=== PATIENT | male | born 1950 | race Caucasian/White ===

== ENCOUNTER 2017-08-26 10:27 | Inpatient (IN) | payer OTHER, MEDICARE ==
[2017-08-26] VITALS (10 sets, daily range): BP systolic 130–187; BP diastolic 70–86; PULSE 56–82; RESP 14–20; TEMP 96.4–98.3; O2SAT 95–98
[~2017-08-26] VITALS: Ht 180.3 cm; Wt 76.6 kg
[2017-08-26] MEDS ORDERED: SPIRCAP INH (10:38)
[2017-08-26] MEDS ORDERED: ALBUAER3 INH (10:38)
--- NOTE | 2017-08-26 10:48 | PD ---
HPI Chief Complaint: Hypertension Time Seen by Provider: 10:38 Travel History International Travel<30 days: No Contact w/Intl Traveler<30days: No Traveled to known affect area: No History of Present Illness HPI This 67-year-old male says that he lost vision in his right eye for about 3 or 4 minutes last night. He's had a mild headache. He has had some visual disturbance in the past. Occasional flashes. Been checking his blood pressure and monitoring and he has occasional elevated readings but he is on no medication. He stopped smoking a year ago and is on 2 inhalers. He did not have any numbness or tingling of his arms or legs he has not been in the hospital for anything recently. [facility] Social History Tobacco Use: No Allergies-Medications (Allergen,Severity, Reaction): Coded Allergies: No Known Allergies (Unverified , 08/26/17) Reported Meds & Prescriptions Reported Meds & Active Scripts Active Reported Proair Hfa 8.5 GM Inh (Albuterol Sulfate) 90 Mcg/Act Aer 2 Puff INH Q4-6H PRN 108 mcg/actuation Spiriva Handihaler (Tiotropium Inh) 18 Mcg Cap 18 Mcg INH DAILY 1 capsule = 18 mcg Review of Systems General / Constitutional: No: Fever, Chills Eyes: Positive: Blindness (for 3-4 minutes in the right eye which resolved), No : Diploplia, Blurred Vision HENT: Positive: Headaches, No: Vertigo Cardiovascular: No: Chest Pain or Discomfort, Palpitations Respiratory: No: Cough, Shortness of Breath Gastrointestinal: No: Nausea, Vomiting Genitourinary: No: Urgency, Frequency Musculoskeletal: No: Myalgias, Arthralgias Skin: No Rash Neurologic: Positive: Headache, No: Weakness, Dizziness, Change in Mentation, Paresthesia, Seizures, Sensory Disturbance Psychiatric: No: Anxiety Hematologic/Lymphatic: No: Easy Bruising Physical Exam Narrative GENERAL: Well-developed male SKIN: Focused skin assessment warm/dry. HEAD: Atraumatic. Normocephalic. EYES: Pupils equal and round. No scleral icterus. No injection or drainage. ENT: No nasal bleeding or discharge. Mucous membranes pink and moist. NECK: Trachea midline. No JVD. CARDIOVASCULAR: Regular rate and rhythm. No murmur appreciated. RESPIRATORY: No accessory muscle use. Clear to auscultation. Breath sounds equal bilaterally. GASTROINTESTINAL: Abdomen soft, non-tender, nondistended. Hepatic and splenic margins not palpable. MUSCULOSKELETAL: No obvious deformities. No clubbing. No cyanosis. No edema. NEUROLOGICAL: Awake and alert. No obvious cranial nerve deficits. Motor grossly within normal limits. Normal speech. PSYCHIATRIC: Appropriate mood and affect; insight and judgment normal. Data Data Last Documented VS Vital Signs Date Time Temp Pulse Resp B/P (MAP) Pulse Ox O2 Delivery O2 Flow Rate FiO2 08/26/17 11:20 82 20 147/72 (97) 95 Room Air 08/26/17 10:32 98.3 Orders Orders Complete Blood Count With Diff (08/26/17 10:38) Basic Metabolic Panel (Bmp) (08/26/17 10:38) Urinalysis - C+S If Indicated (08/26/17 10:38) Ct Brain W/O Iv Contrast(Rout) (08/26/17 ) Cta Brain W Iv Contrast W 3d (08/26/17 11:28) Cta Neck W Iv Contrast W 3d (08/26/17 11:28) Iohexol 350 Inj (Omnipaque 350 Inj) (08/26/17 12:06) Mri Brain W/O Contrast (08/26/17 12:34) Aspirin (Aspirin) (08/26/17 12:45) Sodium Chlor 0.9% 1000 Ml Inj (Ns 1000 M (08/26/17 14:30) Consult Neurology (08/26/17 ) Consult Vascular Surgery (08/26/17 ) Admit Order (Ed Use Only) (08/26/17 14:47) Labs Laboratory Tests Test 08/26/17 10:50 White Blood Count 3.8 TH/MM3 Red Blood Count 4.62 MIL/MM3 Hemoglobin 13.2 GM/DL Hematocrit 41.0 % Mean Corpuscular Volume 88.6 FL Mean Corpuscular Hemoglobin 28.6 PG Mean Corpuscular Hemoglobin Concent 32.3 % Red Cell Distribution Width 12.2 % Platelet Count 157 TH/MM3 Mean Platelet Volume 7.6 FL Neutrophils (%) (Auto) 58.2 % Lymphocytes (%) (Auto) 29.5 % Monocytes (%) (Auto) 7.9 % Eosinophils (%) (Auto) 4.0 % Basophils (%) (Auto) 0.4 % Neutrophils # (Auto) 2.2 TH/MM3 Lymphocytes # (Auto) 1.1 TH/MM3 Monocytes # (Auto) 0.3 TH/MM3 Eosinophils # (Auto) 0.2 TH/MM3 Basophils # (Auto) 0.0 TH/MM3 CBC Comment DIFF FINAL Differential Comment Blood Urea Nitrogen 26 MG/DL Creatinine 0.95 MG/DL Random Glucose 116 MG/DL Calcium Level 8.8 MG/DL Sodium Level 139 MEQ/L Potassium Level 3.9 MEQ/L Chloride Level 106 MEQ/L Carbon Dioxide Level 27.5 MEQ/L Anion Gap 6 MEQ/L Estimat Glomerular Filtration Rate 79 ML/MIN MDM Medical Decision Making Medical Screen Exam Complete: Yes Emergency Medical Condition: Yes Medical Record Reviewed: Yes Differential Diagnosis Differential includes amaurosis fugax, TIA, Narrative Course T scan was obtained and there is noted to be asymmetric low attenuation in the right periventricular white matter right occipital region. This is of uncertain chronicity and could represent a recent versus old ischemic change. MRI did help determine chronicity of this finding and further characterize as needed. I have ordered an MRI. Aspirin has been given. CTA of the carotid arteries shows a 70-75% stenosis in the right proximal internal carotid artery. CTA of the brain is negative. MRI of the brain was done and there are small acute infarcts in the right parietal cortex and right parietal periventricular white matter. There is an old infarct in the right occipital lobe. There is chronic ischemic small vessel vasculopathy. Case discussed with Dr. Hannon and Dr. Becerra. Dr. Hoffmann says it would be okay to keep the patient in [place] and he will consult on the patient Diagnosis Primary Impression: Acute CVA (cerebrovascular accident) Additional Impression: Carotid stenosis, right Admitting Information Admitting Physician Requests: Admit Marcos Garcia MD Aug 26, 2017 10:48
[2017-08-26 11:00] LABS: AUTOMATED NEUTROPHIL # 2.2 TH/MM3 (1.8-7.7); BASOPHIL % 0.4 % (0.0-2.0); EOSINOPHIL # 0.2 TH/MM3 (0-0.4); HEMOGLOBIN 13.2 GM/DL (13.0-17.0); LYMPH % 29.5 % (9.0-44.0); LYMPHOCYTE # 1.1 TH/MM3 (1.0-4.8); MEAN CELL VOLUME 88.6 FL (80.0-100.0); MEAN CORPUSCULAR HEMOGLOBIN 28.6 PG (27.0-34.0); MEAN CORPUSCULAR HGB CONC 32.3 % (32.0-36.0); MEAN PLATELET VOLUME 7.6 FL (7.0-11.0); MONO % 7.9 % (0.0-8.0); MONOCYTE # 0.3 TH/MM3 (0-0.9); NEUT % 58.2 % (16.0-70.0); PLATELET COUNT 157 TH/MM3 (150-450); RED BLOOD COUNT 4.62 MIL/MM3 (4.50-5.90); RED CELL DISTRIBUTION WIDTH 12.2 % (11.6-17.2); WHITE BLOOD COUNT 3.8 TH/MM3 (4.0-11.0)
[2017-08-26 11:10] LABS: CALCIUM 8.8 MG/DL (8.5-10.1)
[2017-08-26 11:11] LABS: BICARBONATE 27.5 MEQ/L (21.0-32.0)
[2017-08-26 11:14] LABS: CREATININE 0.95 MG/DL (0.60-1.30)
[2017-08-26] MEDS ORDERED: IOHEXOL 350 MG/ML 10 ML VIAL (for RAD DIAG) IVCONTRAST ONE (12:06)
--- NOTE | 2017-08-26 12:08 | RADRPT ---
EXAM DATE/TIME: 08/26/2017 11:49 [facility] COMPARISON: No previous studies available for comparison. INDICATIONS : Evaluate for trans ischemic attack. Lost vision in right eye for 3 to 4 minutes last night and is bl urry today. Cephalgia. RADIATION DOSE: 60.53 CTDIvol (mGy) MEDICAL HISTORY : Chronic obstructive pulmonary disease. Hypertension. Hepatitis C. SURGICAL HISTORY : None. ENCOUNTER: Initial ACUITY: 1 day PAIN SCALE: 4/10 LOCATION: Bilateral frontal TECHNIQUE: Multiple contiguous axial images were obtained of the head. Using automated exposure control and adj ustment of the mA and/or kV according to patient size, radiation dose was kept as low as reasonably a chievable to obtain optimal diagnostic quality images. DICOM format image data is available electro nically for review and comparison. FINDINGS: CEREBRUM: There is mild generalized atrophy. Ventricles are normal in size. There is mild periventricular white matter low attenuation in the right occipital region that is asymmetric. Otherwise, no midline shift , mass lesion, hemorrhage or acute infarction. No extra-axial fluid collections are seen. POSTERIOR FOSSA: The cerebellum and brainstem demonstrate no acute finding. The 4th ventricle is midline. The cerebe llopontine angle is unremarkable. EXTRACRANIAL: Visualized sinuses are clear. SKULL: The calvaria is intact. No evidence of skull fracture. CONCLUSION: There is asymmetric low attenuation in the right periventricular white matter in the right occipital region. This is of uncertain chronicity and could represent recent versus old ischemic change. MRI co uld help determine chronicity of this finding and further characterize, if needed. Doe Alcantar MD on August 26, 2017 at 12:04 Board Certified Radiologist. This report was verified electronically.
[2017-08-26] MEDS ORDERED: ASPIRIN 325 MG TAB PO ONE (12:45)
--- NOTE | 2017-08-26 13:08 | RADRPT ---
EXAM DATE/TIME: 08/26/2017 11:49 [facility] COMPARISON: No previous studies available for comparison. INDICATIONS : Evaluate for trans ischemic attack. Lost vision in right eye for 3 to 4 minutes last night and is bl urry today. Cephalgia. IV CONTRAST: 85 cc Omnipaque 350 (iohexol) IV ; Cumulative dose for multiple exams. RADIATION DOSE: 42.28 CTDIvol (mGy) ; Combined studies MEDICAL HISTORY : Hypertension. Hepatitis C. Chronic obstructive pulmonary disease. SURGICAL HISTORY : None. ENCOUNTER: Initial ACUITY: 1 day PAIN SCALE: 4/10 LOCATION: Right cranial TECHNIQUE: Volumetric scanning was performed using a multi-row detector CT scanner. The data was post processed with a variety of visualization algorithms including full volume maximum intensity projection, multi -planar sliding thin slab reformation, curved planar reformation, and surface rendering techniques. Using automated exposure control and adjustment of the mA and/or kV according to patient size, radiat ion dose was kept as low as reasonably achievable to obtain optimal diagnostic quality images. DICO M format image data is available electronically for review and comparison. FINDINGS: There is excellent visualization of the major intracranial arteries out to the second-order branch ve ssels. There is no evidence for aneurysm, vessel truncation or stenosis, and no evidence for vascula r malformation. Right-sided posterior communicating artery. Anterior communicating artery also seen. No aneurysm, amelie nosis or thrombus. Vertebrobasilar junction is normal. Dominant left vertebral artery. Middle, anteri or and posterior cerebral arteries are normal. CONCLUSION: 1. No large vessel stenosis or aneurysm. 2. Normal variants. Dipesh Gerard MD on August 26, 2017 at 13:02 Board Certified Radiologist. This report was verified electronically.
--- NOTE | 2017-08-26 13:24 | RADRPT ---
EXAM DATE/TIME: 08/26/2017 11:49 [facility] COMPARISON: No previous studies available for comparison. INDICATIONS : Evaluate for trans ischemic attack. Lost vision in right eye for 3 to 4 minutes last night and is bl urry today. Cephalgia. IV CONTRAST: 85 cc Omnipaque 350 (iohexol) IV ; Cumulative dose for multiple exams. RADIATION DOSE: 42.28 CTDIvol (mGy) ; Combined studies MEDICAL HISTORY : Hepatitis C. Hypertension. Chronic obstructive pulmonary disease. SURGICAL HISTORY : None. ENCOUNTER: Initial ACUITY: 1 day PAIN SCALE: 4/10 LOCATION: neck Elevated flow velocities and ICA/CCA ratios have been found to correlate with increased degrees of vessel stenosis, calculated as percentage of diameter relative to a normal segment of distal ICA/CCA. TECHNIQUE: Volumetric scanning was performed using a multirow detector CT scanner. The data was post processed with a variety of visualization algorithms including full-volume maximum intensity projection, multip lanar sliding thin-slab reformation, curved-planar reformation, and surface-rendering techniques. Us ing automated exposure control and adjustment of the mA and/or kV according to patient size, radiatio n dose was kept as low as reasonably achievable to obtain optimal diagnostic quality images. DICOM f ormat image data is available electronically for review and comparison. FINDINGS: AORTIC ARCH: There is a three-vessel origin of the great vessels from the aorta. No evidence of ostial narrowing. RIGHT CAROTID: The common carotid artery is intact. Significant calcified and noncalcified plaque at the origin of t he right internal carotid artery with an approximate 70-75% stenosis. The external carotid artery is intact. LEFT CAROTID: The common carotid artery is intact. Mild plaque at the origin the left internal carotid artery witho ut significant stenosis. The external carotid artery is intact. VERTEBRALS: The vertebral arteries have a symmetric diameter. No stenotic lesions are seen. CONCLUSION: 1. There is a 70-75% stenosis within the right proximal internal carotid artery. 2. Mild plaque along the proximal left internal carotid artery without significant stenosis. Dipesh Gerard MD on August 26, 2017 at 13:16 Board Certified Radiologist. This report was verified electronically.
--- NOTE | 2017-08-26 13:43 | RADRPT ---
EXAM DATE/TIME: 08/26/2017 13:11 [facility] COMPARISON: CT BRAIN W/O CONTRAST, August 26, 2017, 11:49. INDICATIONS : CVA. Episode of double vision and blindness, now resolved. MEDICAL HISTORY : Hypertension. SURGICAL HISTORY : None. ENCOUNTER: Subsequent ACUITY: 1 day PAIN SCORE: 0/10 LOCATION: head. TECHNIQUE: Multiplanar, multisequence MRI of the brain was performed without contrast. FINDINGS: CEREBRUM: Area of high flair abnormality within the right periventricular white matter and right parietal jane x. Abnormality also seen within the right occipital lobe. The ventricles are normal for age. No evidenc e of midline shift, mass lesion, hemorrhage or acute infarction. No extraaxial fluid collections are seen. The pituitary gland and suprasellar cistern are normal in configuration. WHITE MATTER: Scattered areas of high flair signal abnormalities are seen in the periventricular white matter. POSTERIOR FOSSA: The cerebellum and brainstem are intact. The 4th ventricle is midline. The cerebellopontine angle is unremarkable. The cerebellar tonsils are normal in position. DIFFUSION IMAGING: No focal areas of restricted diffusion are seen. No evidence of acute infarction. EXTRACRANIAL: The visualized portions of the orbits and paranasal sinuses are unremarkable. CONCLUSION: 1. Small acute infarcts in the right parietal cortex and right parietal periventricular white matter. 2. Old infarct right occipital lobe. 3. Chronic ischemic small vessel vasculopathy. Dipesh Gerard MD on August 26, 2017 at 13:39 Board Certified Radiologist. This report was verified electronically.
[2017-08-26] MEDS ORDERED: SODIUM CHLOR 0.9% 1000 ML INJ 1,000 ML IV SCH (14:30)
[2017-08-26] MEDS ORDERED: SODIUM CHLORIDE 0.9% FLUSH 10 ML FLUSH IV FLUSH PRN ×2 (15:00→21:30)
--- NOTE | 2017-08-26 15:25 | HHI.HP ---
[facility] Admission Diagnosis ACUTE CVA Diagnoses: Chief Complaint: Change of vision with headache Travel History International Travel<30 Days: No Contact w/Intl Traveler <30 Da: No Traveled to Known Affected Are: No History of Present Illness Patient is a 67-year-old gentleman with a history of psoriasis and COPD. Overnight he had acute onset of double vision with blurry vision and right eye vision loss. The symptoms lasted about 4 minutes. By the time he went to look in the mirror his vision had returned to normal. Continue telemetry also had associated frontal headache. No fevers or chills. He's had no nausea or vomiting. He had symptoms like this before. He does have a history of COPD but this has been quite stable. His no personal vascular history. At this time patient seen in emergency room for these symptoms. Patient had an MRI and a CT which confirmed a occipital as well as parietal headache and right sided carotid appears stenotic. Patient has been recommended to admission the hospital for further evaluation. The patient had no trouble ambulating and in no speech trouble. His symptoms have all but resolved except for his headache. Review of Systems Constitutional: DENIES: Diaphoretic episodes, Fatigue, Fever, Weight gain, Weight loss, Chills, Dizziness, Change in appetite, Night Sweats Endocrine: DENIES: Heat/cold intolerance, Polydipsia, Polyuria, Polyphagia Eyes: COMPLAINS OF: Blurred vision, Diplopia, Eye pain, Vision loss, Double Vision, DENIES: Eye inflammation, Photosensitivity Ears, nose, mouth, throat: DENIES: Tinnitus, Hearing loss, Vertigo, Nasal discharge, Oral lesions, Throat pain, Hoarseness, Ear Pain, Running Nose, Epistaxis, Sinus Pain, Toothache, Odynophagia Respiratory: DENIES: Apneas, Cough, Snoring, Wheezing, Hemoptysis, Sputum production, Shortness of breath Cardiovascular: DENIES: Chest pain, Palpitations, Syncope, Dyspnea on Exertion , PND, Lower Extremity Edema, Orthopnea, Claudication Gastrointestinal: DENIES: Abdominal pain, Black stools, Bloody stools, Constipation, Diarrhea, Nausea, Vomiting, Difficulty Swallowing, Anorexia Genitourinary: DENIES: Sexual dysfunction, Urinary frequency, Urinary incontinence, Urgency, Hematuria, Dysuria, Nocturia, Penile Discharge, Testicular Pain, Testicular Swelling Musculoskeletal: DENIES: Joint pain, Muscle aches, Stiffness, Joint Swelling, Back pain, Neck pain Integumentary: DENIES: Abnormal pigmentation, Nail changes, Pruritus, Rash Hematologic/lymphatic: DENIES: Bruising, Lymphadenopathy Immunologic/allergic: DENIES: Eczema, Urticaria Neurologic: DENIES: Abnormal gait, Headache, Localized weakness, Paresthesias, Seizures, Speech Problems, Tremor, Poor Balance Psychiatric: DENIES: Anxiety, Confusion, Mood changes, Depression, Hallucinations, Agitation, Suicidal Ideation, Homicidal Ideation, Delusions Except as stated in HPI: all other systems reviewed are Neg Past Family Social History Past Medical History History of hepatitis C, treated with harvoni COPD Psoriasis Past Surgical History Denies Reported Medications Reviewed in the EMR, also takes Motrin Allergies: Coded Allergies: No Known Allergies (Unverified , 08/26/17) Active Ordered Medications Reviewed in the EMR Family History Mother 87, father in his 80s and had coronary disease and Parkinson's Social History No tobacco for 12 months, 28-axbe-lgiz history No alcohol, lives independently Physical Exam Vital Signs Vital Signs Date Time Temp Pulse Resp B/P (MAP) Pulse Ox O2 Delivery O2 Flow Rate FiO2 08/26/17 11:20 82 20 147/72 (97) 95 Room Air 08/26/17 10:38 16 98 Room Air 08/26/17 10:32 98.3 66 16 187/76 (113) 98 Physical Exam GENERAL: This is a well-nourished, well-developed patient, in no apparent distress. SKIN: No rashes, ecchymoses or lesions. Cool and dry. HEAD: Atraumatic. Normocephalic. No temporal or scalp tenderness. EYES: Pupils equal round and reactive. Extraocular motions intact. No scleral icterus. No injection or drainage. ENT: Nose without bleeding, purulent drainage or septal hematoma. Throat without erythema, tonsillar hypertrophy or exudate. Uvula midline. Airway patent. NECK: Trachea midline. No JVD or lymphadenopathy. Supple, nontender, no meningeal signs. CARDIOVASCULAR: Regular rate and rhythm without murmurs, gallops, or rubs. RESPIRATORY: Clear to auscultation. Breath sounds equal bilaterally. No wheezes , rales, or rhonchi. GASTROINTESTINAL: Abdomen soft, non-tender, nondistended. No hepato-splenomegaly , or palpable masses. No guarding. MUSCULOSKELETAL: Extremities without clubbing, cyanosis, or edema. No joint tenderness, effusion, or edema noted. No calf tenderness. Negative Homans sign bilaterally. NEUROLOGICAL: Awake and alert. Cranial nerves II through XII intact. Motor and sensory grossly within normal limits. Five out of 5 muscle strength in all muscle groups. Normal speech. Laboratory Laboratory Tests Test 08/26/17 10:50 White Blood Count 3.8 Red Blood Count 4.62 Hemoglobin 13.2 Hematocrit 41.0 Mean Corpuscular Volume 88.6 Mean Corpuscular Hemoglobin 28.6 Mean Corpuscular Hemoglobin Concent 32.3 Red Cell Distribution Width 12.2 Platelet Count 157 Mean Platelet Volume 7.6 Neutrophils (%) (Auto) 58.2 Lymphocytes (%) (Auto) 29.5 Monocytes (%) (Auto) 7.9 Eosinophils (%) (Auto) 4.0 Basophils (%) (Auto) 0.4 Neutrophils # (Auto) 2.2 Lymphocytes # (Auto) 1.1 Monocytes # (Auto) 0.3 Eosinophils # (Auto) 0.2 Basophils # (Auto) 0.0 CBC Comment DIFF FINAL Differential Comment Blood Urea Nitrogen 26 Creatinine 0.95 Random Glucose 116 Calcium Level 8.8 Sodium Level 139 Potassium Level 3.9 Chloride Level 106 Carbon Dioxide Level 27.5 Anion Gap 6 Estimat Glomerular Filtration Rate 79 Result Diagram: 08/26/17 1050 08/26/17 1050 Imaging Last Impressions Brain MRI 08/26/17 1234 Signed Impressions: Service Date/Time: Saturday, August 26, 2017 13:11 - CONCLUSION: 1. Small acute infarcts in the right parietal cortex and right parietal periventricular white matter. 2. Old infarct right occipital lobe. 3. Chronic ischemic small vessel vasculopathy. Dipesh Gerard MD Neck CTA 08/26/17 1128 Signed Impressions: Service Date/Time: Saturday, August 26, 2017 11:49 - CONCLUSION: 1. There is a 70-75%% stenosis within the right proximal internal carotid artery. 2. Mild plaque along the proximal left internal carotid artery without significant stenosis. Dipesh Gerard MD Head CTA 08/26/17 1128 Signed Impressions: Service Date/Time: Saturday, August 26, 2017 11:49 - CONCLUSION: 1. No large vessel stenosis or aneurysm. 2. Normal variants. Dipesh Gerard MD Head CT 08/26/17 0000 Signed Impressions: Service Date/Time: Saturday, August 26, 2017 11:49 - CONCLUSION: There is asymmetric low attenuation in the right periventricular white matter in the right occipital region. This is of uncertain chronicity and could represent recent versus old ischemic change. MRI could help determine chronicity of this finding and further characterize, if needed. Doe Alcantar MD Caphumphrey VTE Risk Assessment Caprini VTE Risk Assessment: Mod/High Risk (score >= 2) Caprini Risk Assessment Model Point Value = 1 Point Value = 2 Point Value = 3 Point Value = 5 Age 41-60 Minor surgery BMI > 25 kg/m2 Swollen legs Varicose veins or History of unexplained or recurrent spontaneous Oral contraceptives or hormone replacement Sepsis (< 1 month) Serious lung disease, including pneumonia (< 1 month) Abnormal pulmonary function Acute myocardial infarction Congestive heart failure (< 1 month) History of inflammatory bowel disease Medical patient at bed rest Age 61-74 Arthroscopic surgery Major open surgery (> 45 min) Laparoscopic surgery (> 45 min) Malignancy Confined to bed (> 72 hours) Immobilizing plaster cast Central venous access Age >= 75 History of VTE Family history of VTE Factor V Leiden Prothrombin [id number] Lupus anticoagulant Anticardiolipin antibodies Elevated serum homocysteine Heparin-induced thrombocytopenia Other congenital or acquired thrombophilia Stroke (< 1 month) Elective arthroplasty Hip, pelvis, or leg fracture Acute spinal cord injury (< 1 month) Prophylaxis Regimen Total Risk Factor Score Risk Level Prophylaxis Regimen 0-1 Low Early ambulation 2 Moderate Order ONE of the following: *Sequential Compression Device (SCD) *Heparin 5000 units SQ BID 3-4 Higher Order ONE of the following medications: *Heparin 5000 units SQ TID *Enoxaparin/Lovenox 40 mg SQ daily (WT < 150 kg, CrCl > 30 mL/min) *Enoxaparin/Lovenox 30 mg SQ daily (WT < 150 kg, CrCl > 10-29 mL/min) *Enoxaparin/Lovenox 30 mg SQ BID (WT < 150 kg, CrCl > 30 mL/min) AND/OR *Sequential Compression Device (SCD) 5 or more Highest Order ONE of the following medications: *Heparin 5000 units SQ TID (Preferred with Epidurals) *Enoxaparin/Lovenox 40 mg SQ daily (WT < 150 kg, CrCl > 30 mL/min) *Enoxaparin/Lovenox 30 mg SQ daily (WT < 150 kg, CrCl > 10-29 mL/min) *Enoxaparin/Lovenox 30 mg SQ BID (WT < 150 kg, CrCl > 30 mL/min) AND *Sequential Compression Device (SCD) Assessment and Plan Problem List: (1) Acute CVA (cerebrovascular accident) ICD Code: I63.9 - Cerebral infarction, unspecified Status: Acute Plan: likely due to embolic phenomenon, will follow with neurology, start the patient on aspirin and check a lipid profile Echocardiogram and further workup pending (2) Psoriasis ICD Code: L40.9 - Psoriasis, unspecified Plan: Stable on topical treatments only (3) COPD (chronic obstructive pulmonary disease) ICD Code: J44.9 - Chronic obstructive pulmonary disease, unspecified Plan: Continue bronchodilators as needed and Spiriva daily Currently without exacerbation (4) Carotid stenosis, right ICD Code: I65.21 - Occlusion and stenosis of right carotid artery Status: Acute Plan: We'll evaluate with vascular surgery given patient's acute neurological symptoms likely related to stenosis Physician Certification 2 Midnight Certification Type: Admission for Inpatient Services Order for Inpatient Services The services are ordered in accordance with Medicare regulations or non- Medicare payer requirements, as applicable. In the case of services not specified as inpatient-only, they are appropriately provided as inpatient services in accordance with the 2-midnight benchmark. Estimated LOS (days): 3 3 days is the estimated time the patient will need to remain in the hospital, assuming treatment plan goals are met and no additional complications. Post-Hospital Plan: Not yet determined Giuliana Stack MD Aug 26, 2017 15:25
[2017-08-26] MEDS ORDERED: ONDANSETRON HCL 4 MG/2 ML VIAL IV PUSH PRN (15:30)
[2017-08-26] MEDS ORDERED: IBUPROFEN 200 MG TAB PO ONE (15:30)
[2017-08-26] MEDS ORDERED: ZOLPIDEM TARTRATE 10 MG TAB PO PRN (15:30)
[2017-08-26] MEDS ORDERED: ACETAMINOPHEN 500 MG CPLT PO PRN (15:30)
[2017-08-26] MEDS ORDERED: ALBUTEROL SULFATE 90 MCG/ACT HFA 8 GM INHALER INH PRN (15:30)
[2017-08-26] MEDS ORDERED: DOCUSATE SODIUM 50 MG/SENNA 8.6 MG TAB PO PRN (15:30)
[2017-08-26 16:35] LABS: BILIRUBIN, URINE NEG (NEG); BLOOD, URINE NEG (NEG); GLUCOSE,URINE NEG (NEG); KETONE, URINE NEG (NEG); NITRITE,URINE NEG (NEG); PH, URINE 7.5 (5.0-8.5); URINE LEUKOCYTE ESTERASE NEG (NEG)
[2017-08-26 16:39] LABS: URINE COLOR YELLOW (YELLW/STRAW)
[2017-08-26 16:40] LABS: SQUAMOUS EPITHELIAL CELL URINE 0-5 /hpf (0-5); WBC, URINE 0-2 /hpf (0-5)
--- NOTE | 2017-08-26 17:10 | PD.CAR.PN ---
CVT Progress Note Subjective/Hospital Course: 67-year-old gentleman retired [employer] , who presents with our amaurosis fugax Tight right internal carotid artery stenosis about 80% as well as acute parietal small infarcts on MRI of the brain This patient definitely needs right carotid endarterectomy however in the face of small acute infarcts I will definitely delay surgery a week to 10 days. Old teaching was to wait for about 6 weeks however this led to recurrent strokes and then game was over. The modern teaching is to operate at the same admission for patient's with TIA without acute stroke and to wait about a week or 2 for the patient's left small acute ischemic strokes as this gentleman does. Hemorrhagic strokes of course it treated much differently and waiting time should be about a month at least because patients are anticoagulated during the surgery In the meantime patient should be on Plavix and I'll bring him in electively for surgery in about 10 days. Full consult dictated Thanks Mariam Objective: Vital Signs Date Time Temp Pulse Resp B/P (MAP) Pulse Ox O2 Delivery O2 Flow Rate FiO2 08/26/17 16:15 08/26/17 16:01 56 20 148/78 (101) Room Air 08/26/17 14:40 60 18 97 Room Air 08/26/17 13:00 56 20 130/70 (90) 97 Room Air 08/26/17 11:20 82 20 147/72 (97) 95 Room Air 08/26/17 10:38 16 98 Room Air 08/26/17 10:32 98.3 66 16 187/76 (113) 98 Labs: Laboratory Tests Test 08/26/17 10:50 08/26/17 16:00 White Blood Count 3.8 TH/MM3 (4.0-11.0) Red Blood Count 4.62 MIL/MM3 (4.50-5.90) Hemoglobin 13.2 GM/DL (13.0-17.0) Hematocrit 41.0 % (39.0-51.0) Mean Corpuscular Volume 88.6 FL (80.0-100.0) Mean Corpuscular Hemoglobin 28.6 PG (27.0-34.0) Mean Corpuscular Hemoglobin Concent 32.3 % (32.0-36.0) Red Cell Distribution Width 12.2 % (11.6-17.2) Platelet Count 157 TH/MM3 (150-450) Mean Platelet Volume 7.6 FL (7.0-11.0) Neutrophils (%) (Auto) 58.2 % (16.0-70.0) Lymphocytes (%) (Auto) 29.5 % (9.0-44.0) Monocytes (%) (Auto) 7.9 % (0.0-8.0) Eosinophils (%) (Auto) 4.0 % (0.0-4.0) Basophils (%) (Auto) 0.4 % (0.0-2.0) Neutrophils # (Auto) 2.2 TH/MM3 (1.8-7.7) Lymphocytes # (Auto) 1.1 TH/MM3 (1.0-4.8) Monocytes # (Auto) 0.3 TH/MM3 (0-0.9) Eosinophils # (Auto) 0.2 TH/MM3 (0-0.4) Basophils # (Auto) 0.0 TH/MM3 (0-0.2) CBC Comment DIFF FINAL Differential Comment Blood Urea Nitrogen 26 MG/DL (7-18) Creatinine 0.95 MG/DL (0.60-1.30) Random Glucose 116 MG/DL (74-106) Calcium Level 8.8 MG/DL (8.5-10.1) Sodium Level 139 MEQ/L (136-145) Potassium Level 3.9 MEQ/L (3.5-5.1) Chloride Level 106 MEQ/L (98-107) Carbon Dioxide Level 27.5 MEQ/L (21.0-32.0) Anion Gap 6 MEQ/L (5-15) Estimat Glomerular Filtration Rate 79 ML/MIN (>89) Urine Color YELLOW (YELLW/STRAW) Urine Turbidity CLEAR (CLEAR) Urine pH 7.5 (5.0-8.5) Urine Specific [place] GREATER THAN 1.035 Urine Protein NEG mg/dL (NEG-TRACE) Urine Glucose (UA) NEG mg/dL (NEG) Urine Ketones NEG mg/dL (NEG) Urine Occult Blood NEG (NEG) Urine Nitrite NEG (NEG) Urine Bilirubin NEG (NEG) Urine Leukocyte Esterase NEG (NEG) Urine WBC 0-2 /hpf (0-5) Urine Squamous Epithelial Cells 0-5 /hpf (0-5) Microscopic Urinalysis Comment CULT NOT INDICATED Result Diagram: 08/26/17 1050 08/26/17 1050 Robert Carey MD Aug 26, 2017 17:10
--- NOTE | 2017-08-26 17:21 | EKG ---
Date Performed: 08/26/2017 Time Performed: 14:40:53 PTAGE: 67 years EKG: Sinus rhythm NORMAL ECG NO PREVIOUS TRACING DOCTOR: Nemesio Orellana Interpretating Date/Time 08/26/2017 17:20:42
--- NOTE | 2017-08-26 20:04 | MB ---
cc: ROBERT ELIZABETH MD DATE OF CONSULTATION 08/26/[address] Elizabeth, vascular surgery REASON FOR CONSULTATION Right internal carotid artery stenosis, stroke and amaurosis fugax. HISTORY OF THE PRESENT ILLNESS This 67-year-old gentleman presents to the hospital after suffering overnight double vision and then losing vision in his right eye. This gradually came back in a classic form of amaurosis fugax. The patient is being worked up. He is found to have tight right internal carotid artery stenosis and MRI reveals possibly subacute stroke. The patient is motorically intact and right now has resolving headache. PAST MEDICAL HISTORY Is that of: 1. Hepatitis C. The patient was treated with Harvoni. 2. COPD. 3. Psoriasis. PAST SURGICAL HISTORY Negative. MEDICATIONS The patient does not take anything. SOCIAL HISTORY He smoked about two packs a day for many years, then one-pack, now stopped smoking for 12 months. PHYSICAL EXAMINATION GENERAL: Physical examination reveals a pleasant 67-year-old gentleman in no acute distress. HEENT: Normocephalic. No trauma to the head. Pupils equally reactive. Extraocular muscles intact. No facial droop. No asymmetry. NECK: Bilateral carotid pulses and actually I do not hear a bruit on the right side. No masses in neck. CHEST: Bilateral breath sounds decreased over both lung duval consistent with COPD. In addition the patient has some degree of pulmonary cachexia with loss of chest wall musculature and atrophy. HEART: Regular rhythm. ABDOMEN: Soft. Active bowel sounds. No rebound or guarding. No masses. EXTREMITIES: Are within normal limits. Good proximal distal pulses. No signs of vascular deficit. BACK: Normal. NEUROLOGIC: The patient is currently intact. His [place] coma scale is 12. Visual problems have resolved. Cranial nerves II through XII are normal. Motorically no lateralizations. Sensory preserved. IMPRESSION AND RECOMMENDATIONS I reviewed laboratory and diagnostic procedures. This gentleman indeed has a tight right internal carotid artery stenosis and there is no question he needs a carotid endarterectomy, however he also has small acute infarct in the right parietal lobe and cortex and old infarcts in right occipital lobe. Hence, the patient should not be operated immediately, we should give it some time, a week or two for this to resolve and I am going to bring the patient in on an elective basis for right carotid endarterectomy which my office while organize. Thank you much for referral. Robert MONROY /6:55 PM /7:22 PM
[2017-08-26] MEDS ORDERED: SODIUM CHLORIDE 0.9% FLUSH 10 ML FLUSH IV FLUSH SCH (21:00)
[2017-08-26] MEDS ORDERED: GLUCAGON 1 MG/ML VIAL OTHER PRN (21:30)
[2017-08-26] MEDS ORDERED: DEXTROSE 50% IN WATER 50 ML VIAL(D50) IV PUSH PRN (21:30)
[2017-08-26] MEDS: SODIUM CHLOR 0.9% 1000 ML INJ 1,000 ML IV SCH (22:00)
[2017-08-26] MEDS: ASPIRIN 325 MG TAB PO SCH (22:16)
--- NOTE | 2017-08-26 22:20 | MB ---
cc: VIC VICTORIA MD PHD DATE OF CONSULTATION: 08/26/2017 REASON FOR CONSULTATION: Amaurosis fugax. HISTORY OF PRESENT ILLNESS: The patient is a 67 year-old man who last night had visual loss in his right eye lasting 3-4 minutes while watching TV. He may have had some double vision but the vision completely blacked out on the right, and then came back. He had no other neurologic deficits. No numbness or tingling, or headache. PAST MEDICAL HISTORY: History of hypertension. MEDICATIONS AT HOME Spiriva. ProAir. NEUROLOGIC EXAMINATION His blood pressure is 130/82, pulse 64, respirations 18, temperature 97 degrees. Higher cortical functions normal. Cranial nerves at the present time were normal including vision in the right eye. On motor exam he has no focal deficits. He has normal strength and tone of all major groups in both upper and lower extremities. Reflexes are 2+ symmetric with no Babinski present. Sensory exam is normal. CT of the brain shows low attenuation in the right periventricular white matter in the right occipital lobe, onset in chronicity, possible old stroke. MRI of the brain shows a small acute infarction in the right parietal cortex and right parietal periventricular white matter. Old stroke is identified in the right occipital lobe. Chronic ischemic change identified. There is no hemorrhage. CTA of the neck shows 70 to 75% stenosis, right ICA. Mild plaquing along the left. CT angiogram of the brain is unremarkable. LABORATORY DATA: White count 3,800, hemoglobin 13.2, hematocrit 41%, platelet count 157,000. Sodium is 139, potassium 3.9, chloride 106, CO2 27.5, BUN is 26. Creatinine 0.95. GFR 79. Glucose 116. Urinalysis, pH 7.5, specific gravity 1.035. EKG: Normal sinus rhythm. IMPRESSION: Right amaurosis fugax as well as several strokes on the brain MRI and right hemisphere which are acute in nature. Carotid artery stenosis. Suspect that the strokes on the MRI and the amaurosis fugax are related to the carotid artery stenosis. RECOMMENDATIONS: Agree with vascular surgery consultation. The patient has been seen by Dr. Carey and I agree with his recommendation to wait at least a week or two given the fact that he has had acute strokes in the right parietal area for carotid endarterectomy. For now, continue him on Plavix 75 milligrams daily. Also will check a lipid panel, echocardiogram. Will continue to monitor cardiac telemetry to be sure there is no sign of atrial fibrillation. MD JAIME Israel/DARWIN /9:25 PM /9:57 PM
[2017-08-27] VITALS: BP 140/74; PULSE 60; RESP 18; TEMP 96.5; O2SAT 96
[2017-08-27] MEDS: SODIUM CHLOR 0.9% 1000 ML INJ 1,000 ML IV SCH (03:13)
[2017-08-27 03:30] VITALS: BP 142/80; PULSE 55; RESP 20; TEMP 97.1; O2SAT 97
[2017-08-27 08:00] VITALS: BP 150/89; PULSE 55; PULSE 57; RESP 18; TEMP 97; O2SAT 37; O2SAT 97
[2017-08-27] MEDS: INSULIN ASPART SUPPLEMENTAL SCALE SQ SCH ×2 (08:00→12:00)
[2017-08-27] MEDS ORDERED: ASPIRIN 325 MG TAB PO SCH (09:00)
[2017-08-27] MEDS ORDERED: SODIUM CHLORIDE 0.9% FLUSH 10 ML FLUSH IV FLUSH SCH (09:00)
[2017-08-27] MEDS ORDERED: TIOTROPIUM BROMIDE 18 MCG INH INH SCH (09:00)
[2017-08-27] MEDS ORDERED: CLOPIDOGREL 75 MG TAB PO SCH (09:00)
[2017-08-27] MEDS: ASPIRIN 325 MG TAB PO SCH (09:27)
[2017-08-27 10:21] LABS: CHOLESTEROL 153 MG/DL (120-200); TRIGLYCERIDES 105 MG/DL (42-150)
[2017-08-27 10:24] LABS: CHOLESTEROL/ HDL RATIO 4.11 RATIO; HDL CHOLESTEROL 37.2 MG/DL (40.0-60.0); LDL CHOLESTEROL 95 MG/DL (0-99)
--- NOTE | 2017-08-27 11:13 | ECHRPT ---
Indication: CVA/TIA CONCLUSIONS Normal left ventricular size. Mild concentric left ventricular hypertrophy. The right atrial size is mildly dilated. No atrial level shunt is demonstrated by color flow Doppler interrogation. Trace mitral valve regurgitation. There is trace tricuspid valve regurgitation. The estimated pulmonary arterial pressure is 33.8 mmHg. BP: 142 / 80 HR: 55 Rhythm: Sinus MEASUREMENTS (Male / Female) Normal Values Technical Quality:Fair 2D ECHO LV Diastolic Diameter PLAX 4.2 cm 4.2 - 5.9 / 3.9 - 5.3 cm LV Systolic Diameter PLAX 3.0 cm IVS Diastolic Thickness 1.0 cm 0.6 - 1.0 / 0.6 - 0.9 cm LVPW Diastolic Thickness 1.0 cm 0.6 - 1.0 / 0.6 - 0.9 cm LV Relative Wall Thickness 0.5 RV Internal Dim ED PLAX 2.4 cm LVOT Diameter 2.1 cm Aortic Root Diameter 3.7 cm LA Systolic Diameter LX 3.4 cm 3.0 - 4.0 / 2.7 - 3.8 cm M-MODE AV Cusp Separation MM 2.0 cm DOPPLER AV Peak Velocity 95.1 cm/s AV Peak Gradient 3.6 mmHg AV Mean Gradient 2.0 mmHg AV Velocity Time Integral 19.8 cm LVOT Peak Velocity 59.4 cm/s LVOT Peak Gradient 1.4 mmHg LVOT Velocity Time Integral 15.6 cm AV Area Cont Eq vti 2.7 cm AV Area Cont Eq pk 2.2 cm Mitral E Point Velocity 70.3 cm/s Mitral A Point Velocity 51.8 cm/s Mitral E to A Ratio 1.4 LV E' Lateral Velocity 6.5 cm/s Mitral E to LV E' Lateral Ratio 10.8 LV E' Septal Velocity 6.9 cm/s Mitral E to LV E' Septal Ratio 10.2 TR Peak Velocity 244.0 cm/s TR Peak Gradient 23.8 mmHg Right Atrial Pressure 10.0 mmHg Pulmonary Artery Systolic Pressu 33.8 mmHg Right Ventricular Systolic Press 33.8 mmHg PV Peak Velocity 47.4 cm/s PV Peak Gradient 0.9 mmHg FINDINGS LEFT VENTRICLE Normal left ventricular size. Mild concentric left ventricular hypertrophy. The left ventricular systolic function is normal with an estimated ejection fraction in the range of 60-65%. RIGHT VENTRICLE Normal right ventricular size and systolic function. LEFT ATRIUM The left atrial size is normal. RIGHT ATRIUM The right atrial size is mildly dilated. ATRIAL SEPTUM No atrial level shunt is demonstrated by color flow Doppler interrogation. AORTA The aortic root and proximal ascending aorta are normal in size on limited imaging. MITRAL VALVE Trace mitral valve regurgitation. AORTIC VALVE Trileaflet aortic valve. No aortic valve stenosis or regurgitation. TRICUSPID VALVE There is trace tricuspid valve regurgitation. The estimated pulmonary arterial pressure is 33.8 mmHg. PULMONARY VALVE No pulmonary valve regurgitation or stenosis. VESSELS The inferior vena cava is normal in size. PERICARDIUM No pericardial effusion. Quoc Danielson MD, FACC (Electronically Signed) Final Date:27 August 2017 11:12
[2017-08-27] MEDS ORDERED: PLAV75TA29 PO (11:22)
--- NOTE | 2017-08-27 11:22 | HHI.DCPOC ---
Discharge Care Plan Diagnosis: (1) Acute CVA (cerebrovascular accident) (2) Carotid stenosis, right Goals to Promote Your Health * To prevent worsening of your condition and complications * To maintain your health at the optimal level Directions to Meet Your Goals Take your medications as prescribed Follow your dietary instruction Follow activity as directed Keep your appointments as scheduled Take your immunizations and boosters as scheduled If your symptoms worsen call your PCP, if no PCP go to Urgent Care Center or Emergency Room Smoking is Dangerous to Your Health. Avoid second hand smoke Call the 24-hour hour crisis hotline for domestic abuse at Giuliana Stack MD Aug 27, 2017 11:22
[2017-08-27] MEDS ORDERED: ATOR40TA16 PO (11:24)
--- NOTE | 2017-08-27 11:25 | HHI.DS ---
Discharge Summary Admission Date Aug 26, 2017 at 14:49 Discharge Date: Aug 27, 2017 Admitting Diagnosis ACUTE CVA (1) Acute CVA (cerebrovascular accident) ICD Code: I63.9 - Cerebral infarction, unspecified Status: Acute (2) Psoriasis ICD Code: L40.9 - Psoriasis, unspecified (3) COPD (chronic obstructive pulmonary disease) ICD Code: J44.9 - Chronic obstructive pulmonary disease, unspecified (4) Carotid stenosis, right ICD Code: I65.21 - Occlusion and stenosis of right carotid artery Status: Acute Procedures None Brief History - From Admission Patient is a 67-year-old gentleman with a history of psoriasis and COPD. Overnight he had acute onset of double vision with blurry vision and right eye vision loss. The symptoms lasted about 4 minutes. By the time he went to look in the mirror his vision had returned to normal. Continue telemetry also had associated frontal headache. No fevers or chills. He's had no nausea or vomiting. He had symptoms like this before. He does have a history of COPD but this has been quite stable. His no personal vascular history. At this time patient seen in emergency room for these symptoms. Patient had an MRI and a CT which confirmed a occipital as well as parietal headache and right sided carotid appears stenotic. Patient has been recommended to admission the hospital for further evaluation. The patient had no trouble ambulating and in no speech trouble. His symptoms have all but resolved except for his headache. CBC/BMP: 08/26/17 1050 08/26/17 1050 Significant Findings Laboratory Tests Test 08/26/17 10:50 08/26/17 16:00 08/27/17 05:30 White Blood Count 3.8 TH/MM3 (4.0-11.0) Blood Urea Nitrogen 26 MG/DL (7-18) Random Glucose 116 MG/DL (74-106) Estimat Glomerular Filtration Rate 79 ML/MIN (>89) Urine Specific [place] GREATER THAN 1.035 HDL Cholesterol 37.2 MG/DL (40.0-60.0) Imaging Last Impressions Brain MRI 08/26/17 8294 Signed Impressions: Service Date/Time: Saturday, August 26, 2017 13:11 - CONCLUSION: 1. Small acute infarcts in the right parietal cortex and right parietal periventricular white matter. 2. Old infarct right occipital lobe. 3. Chronic ischemic small vessel vasculopathy. Dipesh Gerard MD Neck CTA 08/26/17 1128 Signed Impressions: Service Date/Time: Saturday, August 26, 2017 11:49 - CONCLUSION: 1. There is a 70-75%% stenosis within the right proximal internal carotid artery. 2. Mild plaque along the proximal left internal carotid artery without significant stenosis. Dipesh Gerard MD Head CTA 08/26/17 1128 Signed Impressions: Service Date/Time: Saturday, August 26, 2017 11:49 - CONCLUSION: 1. No large vessel stenosis or aneurysm. 2. Normal variants. Dipesh Gerard MD Head CT 08/26/17 0000 Signed Impressions: Service Date/Time: Saturday, August 26, 2017 11:49 - CONCLUSION: There is asymmetric low attenuation in the right periventricular white matter in the right occipital region. This is of uncertain chronicity and could represent recent versus old ischemic change. MRI could help determine chronicity of this finding and further characterize, if needed. Doe Alcantar MD PE at Discharge GENERAL: This is a well-nourished, well-developed patient, in no apparent distress. CARDIOVASCULAR: Regular rate and rhythm without murmurs, gallops, or rubs. RESPIRATORY: Clear to auscultation. Breath sounds equal bilaterally. No wheezes , rales, or rhonchi. GASTROINTESTINAL: Abdomen soft, non-tender, nondistended. Normal active bowel sounds MUSCULOSKELETAL: Extremities without clubbing, cyanosis, or edema. NEURO: Alert & Oriented x4 to person, place, time, situation. Moves all ext x4 Pt update on day of discharge Patient doing well. No further events. Neurological and vascular surgery consult appreciated. Echocardiogram unremarkable for valvular abnormalities old there is some right sided dilation Hospital Course This patient is a 67-year-old gentleman who was evaluated for stroke symptoms. He was found have parietal infarct with associated right carotid stenosis. Patient will benefit from carotid" vascular procedures however this will be done as outpatient. He was seen by neurology as well as vascular surgery. He was seen also by rehabilitation team here and echocardiogram as well as blood work was done. Pt Condition on Discharge: Good Discharge Disposition: Discharge Home Discharge Time: <= 30 minutes Discharge Instructions Follow up Referrals: Vascular Surgery - 3-5 Days New Medications: Clopidogrel (Plavix) 75 Mg Tab 75 MG PO DAILY for Stroke Prevention, #31 TAB Continued Medications: Albuterol 8.5 GM Inh (Proair Hfa 8.5 GM Inh) 90 Mcg/Act Aer 2 PUFF INH Q4-6H PRN for SHORTNESS OF BREATH, #1 INHALER 0 Refills 108 mcg/actuation Tiotropium Inh (Spiriva Handihaler) 18 Mcg Cap 18 MCG INH DAILY for COPD, #30 CAP 0 Refills 1 capsule = 18 mcg Giuliana Stack MD Aug 27, 2017 11:25
[2017-08-27 12:00] VITALS: BP 142/80; PULSE 68; RESP 18; TEMP 97; O2SAT 97
[2017-08-27 16:57] LABS: HEMOGLOBIN A1C 5.6 % (4.3-6.0)
== END 2017-08-27 16:34 | disposition home or self-care (01) | DRG 65 ==
LOC: PHED 10:27 → PHEDA 14:49 → PH3A 16:00
PROVIDERS: ADMIT Hospitalist; ATTEND Hospitalist
DX: I63.231 Cerebral infarction due to unspecified occlusion or stenosis of right carotid arteries (principal); G45.3 Amaurosis fugax; J44.9 Chronic obstructive pulmonary disease, unspecified; I10 Essential (primary) hypertension; L40.9 Psoriasis, unspecified; Z86.19 Personal history of other infectious and parasitic diseases; Z86.73 Personal history of transient ischemic attack (TIA), and cerebral infarction without residual deficits; Z87.891 Personal history of nicotine dependence
CPT/HCPCS: 70450; 70496; 70498; 70551; 80048; 80061; 81001; 82948; 83036; 85025; 93005; 93306; 99285; J7030; Q9967